=== PATIENT | female | born 1955 | race African-American/Black ===

== ENCOUNTER 2024-11-08 09:43 | Emergency (ER) | payer BC ==
[~2024-11-08] VITALS: Ht 157.5 cm; Wt 93.4 kg
[~2024-11-08 09:43] MED LIST: AMLO-751 PO; GLIP10TA16 PO; METF-446 PO; METO50TA18 PO; VICTOZA PO
--- NOTE | 2024-11-08 10:06 | ERN ---
ED Note History of Present Illness Stated Complaint: LEFT ANKLE PAIN Chief Complaint: Ankle Problem Dictation: This is a case of a 69-year-old female with a past medical history of diabetes mellitus, hypertension, glaucoma who presented to the ER with the complaints of left ankle pain and swelling since yesterday. She states that she had sustained trauma to the left ankle a couple of months ago and has experienced intermittent swelling since then. However the pain and swelling were pronounced yesterday, and she has difficulty bearing weight on the left foot. She denies headache, dizziness, nausea, vomiting, fever, chills, shortness of breath, chest pain, palpitations, numbness/tingling sensations in the left foot. Hemodynamically stable. Patient is not on any blood thinners. Allergies: Coded Allergies: sulfamethoxazole (Unverified Allergy, Severe, ITCHING, 12/22/15) trimethoprim (Unverified Allergy, Severe, ITCHING, 12/22/15) Home Meds Active Scripts Diclofenac Sodium (Diclofenac Sodium) 1 % Gel..gram., 1 APPL TP QID for 14 Days, #100 GM 0 Refills Prov:SAWYER PACHECO MD 11/08/24 Reported Medications Metoprolol Tartrate (Metoprolol Tartrate) 50 Mg Tablet, 50 MG PO BID, TAB 12/22/15 [Victoza] No Conflict Check, 18 MG PO AM 12/22/15 Glipizide (Glipizide) 10 Mg Tablet, 10 MG PO AM, TAB 12/22/15 Amlodipine Bes/Olmesartan Med (Vik 5-20 mg Tablet) 1 Each Tablet, 1 EACH PO AM, TAB 12/22/15 Metformin HCl (Metformin HCl) 1,000 Mg Tablet, 1000 MG PO BID, TAB 12/22/15 Past Medical History Past Medical History: Diabetes-Type II, Glaucoma, Hypertension Surgical History: Tonsillectomy, Cholecystectomy, Review of System Dictation CONSTITUTIONAL: No chills, no fever, no weakness, no diaphoresis, no malaise. HEAD/FACE: No signs of trauma. EENT: No eye pain, no blurred vision, no tearing, no double vision, no ear pain, no ear discharge, no nose pain, no nasal congestion, no throat pain, no throat swelling, no mouth pain. RESPIRATORY: No cough, no orthopnea, no SOB, no stridor, no wheezing. CARDIOVASCULAR: No chest pain, no edema, no palpitations, no syncope. GASTROINTESTINAL/ABDOMINAL: No abdominal pain, no constipation, no diarrhea, no nausea, no vomiting. GENITOURINARY: No abnormal discharge, no dysuria, no frequent urination, no hematuria. No complaints of pain in the genitals. MUSCULOSKELETAL: No back pain, no gout, left ankle joint pain and swelling , no neck pain. NEUROLOGICAL/PSYCH: No anxiety, not depressed, no emotional problem, no headache, no numbness, no pre-existing deficit, no history of seizures, no tremors, no weakness. All Systems Negative, Except as Noted. Initial Vital Sign VS Vital Signs Date Time Temp Pulse Resp B/P (MAP) Pulse Ox O2 Delivery O2 Flow Rate FiO2 11/08/24 09:45 98.4 73 20 129/71 99 Room Air 0 11/08/24 09:45 21 Physical Exam Dictation Physical Exam Dictation VITAL SIGNS: Reviewed. GENERAL APPEARANCE: Alert, oriented x3, no acute distress, obese. HEAD AND FACE: Non-traumatic. EYES: PERRL, pink conjunctivas, eyelid no trauma, anterior chamber clear. NOSE: No discharge, no bleeding. NECK: Supple, non-tender, no thyromegaly, no masses, no JVD, no bruits. BREAST: Deferred. CHEST: No tenderness, no crepitus, no paradoxical movement, no retractions. LUNGS: Clear, well-ventilated, symmetric, no rales, no wheezing, no rhonchi, no stridor, good breath sounds bilaterally. HEART: Regular rate, regular rhythm, no murmur, no gallops. VASCULAR: No peripheral edema. ABDOMEN: Soft, positive bowel sounds, nondistended, no guarding, nontender, no rebound, no masses no hepatomegaly, no splenomegaly, no Morales's sign, no hernias. RECTAL: Deferred. GENITAL: Deferred. NEUROLOGICAL: Normal speech, gross motor function intact, gross sensory function intact. MUSCULOSKELETAL: Neck nontender, full range of motion, back nontender, full range of motion. EXTREMITIES: Nontender, restricted motion in the left foot due to pain, swelling and pain at left medial malleolus, no erythema and warmth noted SKIN: Color pink, dry, no turgor, no rash, no lacerations, no abrasions, no contusions. LYMPHATICS: Deferred. ED Course ED Course Orders Procedure Category Date Status Time Ankle Comp 3vws Lt RAD 11/08/24 Resulted 10:06 Naproxen (Naprosyn) PHA 11/08/24 Complete 10:30 *Nursing CPOE 11/08/24 Transmitted Communication: 11:23 Current Medications Medications (Trade) Dose Ordered Sig/Fernando Route PRN Reason Start Time Stop Time Status Last Admin Dose Admin Naproxen (Naprosyn) 375 mg ONCE ONCE PO 11/08/24 10:30 11/08/24 10:31 DC Vital Signs Date Time Temp Pulse Resp B/P (MAP) Pulse Ox O2 Delivery O2 Flow Rate FiO2 11/08/24 11:51 98.4 70 18 129/71 99 Room Air* 0 21 11/08/24 09:45 98.4 73 20 129/71 99 Room Air* 0 21 11/08/24 09:45 98.4 73 20 129/71 99 Room Air 0 Medical Decision Making [facility] Potential differential diagnoses include: Ankle sprain Fracture Tendinitis Assessment: Will order left ankle x-ray to rule out fractures/dislocations I will re-evaluate the patient after treatment and diagnostic exams have returned to determine whether they require further testing, can be safely discharged home, or need admission for further treatment and evaluation. Given the social determinants of health affecting care, including literacy, access to medical care, prescription drug management, and [id number] drugs, I will ensure that treatment plans are tailored accordingly. Revaluation : Patient is awake alert and oriented. Hemodynamically stable. Left ankle x-ray resulted in no acute findings. A gel splint was applied to the left ankle. Disposition: Patient is being discharged home with a prescription of diclofenac gel topical application q.i.d. p.r.n. pain/swelling Advised to Follow up with PCP within 2-3 days Apply diclofenac sodium gel p.r.n. as needed for pain and swelling Use [id number] medications like ibuprofen p.r.n. for pain/swelling. Patient admits that she has ibuprofen available at home. Elevate foot about heart level and possible to reduce swelling Once the initial swelling and pain have decreased, start gentle stretching and exercises strengthening exercises Monitor for symptoms like increasing pain, difficulty moving the ankle or signs of infection like redness, warmth, fever, worsening of current symptoms or new symptoms seek immediate medical attention in such scenario Patient agrees with the discharge plan DX & DISP Disposition: Discharge Departure Impression: Primary Impression: Left ankle sprain Critical Time: 30 minutes Condition: Stable Scripts Diclofenac Sodium (Diclofenac Sodium) 1 % Gel..gram. 1 APPL TP QID for 14 Days, #100 GM 0 Refills Prov: SAWYER PACHECO MD 11/08/24 Referrals: KATHI GLEZ MD (PCP) ATTESTATION BY PHYSICIAN I have seen and examined the patient. I reviewed the documentation, medical decision making, and treatment plan as noted by the resident above. I agree with the findings and plan of care. BAKARI VILLA MD, PRIYANKA MD Nov 08, 2024 10:06
[2024-11-08] MEDS: NAPROXEN 250 MG TAB PO ONE (10:16)
--- NOTE | 2024-11-08 10:19 | NUR ---
DECLINED ORDER FOR NAPROXENS STATING DOES NOT HELP WITH DISCOMFORT WHEN TAKEN IN THE PAST
--- NOTE | 2024-11-08 10:41 | HMCIMG ---
Exam Type: ANKLE COMP 3VWS LT Clinical Information: LEFT ANKLE SWELLING, Pain Comparison: None Findings: The bone examination is unremarkable. No fractures or dislocations are seen. No radiopaque foreign bodies are noted. Soft tissues are preserved. IMPRESSION: Normal examination.
[2024-11-08] MEDS ORDERED: DICL100G60 TP (11:18)
--- NOTE | 2024-11-08 11:50 | NUR ---
GEL SPLINT APPLED TO ANKLE ORDERED
[2024-11-08 11:51] VITALS: BP 129/71; PULSE 70; RESP 18; TEMP 98.4; O2SAT 99
== END 2024-11-08 11:51 | disposition home or self-care (01) ==
LOC: EDH 09:43
DX: S93.492A Sprain of other ligament of left ankle, initial encounter (principal); E11.9 Type 2 diabetes mellitus without complications; I10 Essential (primary) hypertension; Z79.84 Long term (current) use of oral hypoglycemic drugs; Z79.899 Other long term (current) drug therapy; Z88.1 Allergy status to other antibiotic agents; Z88.2 Allergy status to sulfonamides; Z90.49 Acquired absence of other specified parts of digestive tract; Z90.89 Acquired absence of other organs; X58.XXXA Exposure to other specified factors, initial encounter; Y93.89 Activity, other specified; Y92.89 Other specified places as the place of occurrence of the external cause; Y99.8 Other external cause status
CPT/HCPCS: 73610; 99283